=== PATIENT | female | born 1970 | race Caucasian/White ===

== ENCOUNTER 2019-08-24 14:43 | Outpatient (CLI) | payer OTHER, SELFPAY ==
--- NOTE | 2019-08-24 14:51 | MM_ITS ---
WS: [id number] BILATERAL SCREENING MAMMOGRAM WITH DONIS DISPLACEMENT VIEWS. CAD PERFORMED. HISTORY: SCREENING COMPARISON: 05/13/2018 and 04/16/2017 Bilateral craniocaudal and mediolateral like views are performed. Donis displacement views in CC and MLO projection also performed. Breasts composition: There are scattered areas of fibroglandular density. Prepectoral implants are intact. No suspicious mass or calcification. MM/[id number] IMPRESSION: BI-RADS: 2-Benign FOLLOW-UP: 1 Year Follow-up
== END 2019-08-24 14:44 | disposition home or self-care (01) ==
LOC: RADSHAW 14:48
PROVIDERS: PCP Internal Medicine; Visit Provider Internal Medicine
DX: Z12.31 Encounter for screening mammogram for malignant neoplasm of breast (principal)
CPT/HCPCS: 77067

== ENCOUNTER → 2020-02-25 13:31 | Outpatient (BNVA) | payer OTHER, SELFPAY | PROVIDERS: Visit Provider Family Medicine | DX: Z20.828 Contact with and (suspected) exposure to other viral communicable diseases (principal) | CPT/HCPCS: 87635 ==

== ENCOUNTER 2020-05-22 07:52 | Day surgery (SDC) | payer OTHER, SELFPAY ==
[2020-05-17 13:59] VITALS: BMI 33.3
[2020-05-22 07:59] VITALS: BP 132/92; PULSE 105; RESP 18; TEMP 36.7; O2SAT 98
[2020-05-22] MEDS: sodium chloride 0.9% 1,000 ML 30 ML IV (08:32)
--- NOTE | 2020-05-22 08:58 | ANES.PREANE2 ---
Pre-Anesthetic Assessment Pre-Anesthetic Assessment: Height/Weight: Height 1.65 m Weight 90.718 kg Temp Pulse Resp BP Pulse Ox 98.1 F 105 H 18 132/92 98 05/22/20 07:59 05/22/20 07:59 05/22/20 07:59 05/22/20 07:59 05/22/20 07:59 Preop Diagnosis: sc Proposed Procedure: Operation Date: 05/22/20 09:00 Proposed Procedures p Colonoscopy 81250 G56.03(Not Applicable) - Rohan Brown MD Was Beta Gill taken within 24 hours: N/A Last intake: Intake Last Liquid Date 05/21/20 Last Liquid Time 20:00 Last Solid Date 05/20/20 Last Solid Time 20:00 Social: Social History: No alcohol and No tobacco Exam: Pre-Anes Outpt Exam: alert, oriented x 3, clear to auscultation bilaterally and regular rate & rhythm Airway: Submandibular: WNL Cervical ROM: WNL MP: 2 Dentition: Full History/ROS: No significant history except as noted and No significant complaints Pulmonary: Pulmonary: None reported CV/HEM: CV/HEM: None reported : : None reported Hepatic: Hepatic: None reported GI: GI: None reported Metabolic: Metabolic: None reported Musc/skel: Musc/skel: None reported Neuropsych: Neuropsych: None reported Anesthetic Plan: ASA status: 2 Anesthesia: MAC Risk of > 500 ml blood loss (7ml/kg in children): No Meds/Allergies Current Medications: Current Medications Generic Name Dose Route Start Last Admin Trade Name Freq PRN Reason Stop Dose Admin Sodium Chloride 1,000 mls @ 30 ml s/hr 05/22/20 08:00 05/22/20 08:32 Sodium Chloride 0.9% IV 05/23/20 07:59 30 mls/hr .Q24H SUMEET Administration PFSH Anesthesia PFSH: Medical History Metabolic syndrome Family History Other Cancer Heart disease Social History Smoking and tobacco status: never smoked Alcohol intake: never History of recent travel: No Data Anesthesia Cardiac Studies: No Data to Display
--- NOTE | 2020-05-22 09:02 | W.PM.OPSFHP ---
Same Day Surgery H&P Indication for Procedure/HPI DATE OF PROCEDURE: May 22, 2020 CHIEF COMPLAINT/INDICATIONFOR SURGICAL PROCEDURE: Routine screening average risk PREOP DIAGNOSIS: sc PLANNED PROCEDRUE: Operation Date: 05/22/20 09:00 Proposed Procedures p Colonoscopy 65120 G56.03(Not Applicable) - Rohan Brown MD Medications/Allergies* Home Medications Medication Instructions Recorded Confirmed Type hydrocortisone 2.5 % topical cream [address] QDAY PRN 04/22/19 05/17/20 History with perineal applicator tramadol 50 mg tablet 50 mg PO DAILY PRN tab 08/04/19 05/17/20 History tizanidine 4 mg capsule 4 mg PO BID PRN 09/12/19 05/17/20 History multivitamin with minerals 1 tab PO DAILY 03/04/20 05/17/20 History ascorbate calcium (vitamin C) 500 500 mg PO DAILY 04/12/20 05/17/20 History mg tablet cholecalciferol (vitamin D3) 25 25 mcg PO DAILY 04/12/20 05/17/20 History mcg (1,000 unit) capsule vitamin B complex 1 cap PO DAILY 04/12/20 05/17/20 History Aspir-81 81 mg PO DAILY 05/22/20 05/22/20 History Allergies/Adverse Reactions Allergy/AdvReac Type Severity Reaction Status Date / Time hydrocodone [From [place]] Allergy ADR-Itching Verified 04/12/20 14:56 meperidine [From Demerol] Allergy ALGY-Rash Verified 04/12/20 14:56 oxycodone AdvReac ADR-Itching Verified 04/12/20 14:56 Current Medications: Generic Name Dose Route Start Last Admin Trade Name Freq PRN Reason Stop Dose Admin Sodium Chloride 1,000 mls @ 30 mls/hr 05/22/20 08:00 05/22/20 08:32 Sodium Chloride 0.9% IV 05/23/20 07:59 30 mls/hr .Q24H SUMEET Administration Pertinent History/Comorbid Conditions* Medical History (Updated 08/04/19 @ 14:26 by Rohan Brown MD) Metabolic syndrome Family History (Updated 04/22/19 @ 09:15 by Kim Hernandez LPN) Heart disease Cancer Social History Smoking and tobacco status: never smoked Alcohol intake: never History of recent travel: No Pertinent Exam Findings alert, oriented x 3, clear to auscultation bilaterally, regular rate & rhythm, operative site marked and procedure specific exam findings Recommendations Surgery/Procedure today Coding Level of Care Code Acute 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
[2020-05-22 09:32] VITALS: BP 121/64; PULSE 77; RESP 16; TEMP 36.4; O2SAT 97
[2020-05-22 09:51] VITALS: BP 109/81; PULSE 78; RESP 16; O2SAT 100
--- NOTE | 2020-05-22 18:07 | ANE.PACU2 ---
Inpatient post-anesthesia follow up: Airway intact: Yes Vital signs: Temperature 97.6 F Pulse Rate 78 Respiratory Rate 16 Blood Pressure 109/81 Pulse Oximetry 100 Oxygen Delivery Me thod Room Air Oxygen Flow Rate Fraction of Inspir ed Oxygen Hydration adequate: Yes Nausea and vomiting: No Pain level: 1 Mental status: Baseline
== END 2020-05-22 10:07 | disposition home or self-care (01) ==
PROVIDERS: Visit Provider Internal Medicine
PROC: 0DJD8ZZ Inspection of Lower Intestinal Tract, Via Natural or Artificial Opening Endoscopic (ICD-10-PCS; CPT 45378; principal; 2020-05-22 09:00)
DX: Z12.11 Encounter for screening for malignant neoplasm of colon (principal); Z79.82 Long term (current) use of aspirin; E88.81 Metabolic syndrome and other insulin resistance
CPT/HCPCS: 45378; J2704; J7030

== ENCOUNTER 2020-11-06 14:32 | Outpatient (CLI) | payer OTHER, SELFPAY ==
--- NOTE | 2020-11-06 14:41 | MM_ITS ---
WS: [id number] BILATERAL SCREENING MAMMOGRAM WITH DONIS DISPLACEMENT VIEWS. CAD PERFORMED. HISTORY: SCREENING COMPARISON: 08/24/2019, 05/13/2018 Bilateral craniocaudal and mediolateral like views are performed. Donis displacement views in CC and MLO projection also performed. Breasts composition: The breasts are almost entirely fatty. Prepectoral implants are intact. Partial capsular contraction and encapsulation by calcification. No suspicious masses or nodules. No distort ion. MM/[place] [id number] IMPRESSION: BI-RADS: 2-Benign FOLLOW-UP: 1 Year Follow-up
== END 2020-11-06 14:33 | disposition home or self-care (01) ==
LOC: RADSHAW 14:37
PROVIDERS: PCP Internal Medicine; Visit Provider Internal Medicine
DX: Z12.31 Encounter for screening mammogram for malignant neoplasm of breast (principal)
CPT/HCPCS: 77067

== ENCOUNTER 2020-11-16 14:48 | Outpatient (CLI) | payer OTHER, SELFPAY ==
--- NOTE | 2020-11-16 14:52 | XR_ITS ---
WS: [id number] Pelvis, 3 view. HISTORY: Fall and pain and pelvis. COMPARISON: None. No pelvic fractures are identified. Normal alignment of the symphysis pubis and the SI joints. Mild n arrowing of the hip joints bilaterally. XR/XR pelvis min 3V [id number] IMPRESSION: Negative pelvis radiographic series. No fractures identified.
== END 2020-11-16 14:49 | disposition home or self-care (01) ==
PROVIDERS: PCP Internal Medicine; Visit Provider Nurse Practitioner Family
DX: S39.93XA Unspecified injury of pelvis, initial encounter (principal); W19.XXXA Unspecified fall, initial encounter
CPT/HCPCS: 72190

== ENCOUNTER 2021-01-04 14:57 | Outpatient (CLI) | payer OTHER, SELFPAY ==
--- NOTE | 2021-01-04 15:03 | XR_ITS ---
WS: [id number] XR lumbar spine min 4V [id number] REASON FOR EXAM: Back pain FINDINGS: Mild rotatory scoliosis lumbar spine convex right. No significant lumbar vertebral body abnormality. Mild narrowing of the L4-L5 and L5-S1 disc space. The oblique views demonstrate no spondylolysis. No significant spondylolisthesis is present. XR/XR lumbar spine min 4V [id number] IMPRESSION: Mild changes of degenerative spondylosis in the lumbar spine as above.
== END 2021-01-04 14:58 | disposition home or self-care (01) ==
LOC: RAD 15:02
PROVIDERS: PCP Internal Medicine; Visit Provider Nurse Practitioner Family
DX: M47.816 Spondylosis without myelopathy or radiculopathy, lumbar region (principal); M54.50 Low back pain, unspecified
CPT/HCPCS: 72110

== ENCOUNTER 2021-01-10 14:26 | Outpatient (RCR) | payer OTHER, SELFPAY | END 2021-01-21 23:59 | disposition home or self-care (01) | LOC: SPT 14:26 | PROVIDERS: PCP Internal Medicine; Visit Provider Nurse Practitioner Family | DX: M54.50 Low back pain, unspecified (principal) | CPT/HCPCS: 97161 ==

== ENCOUNTER 2021-01-22 06:00 | Outpatient (RCR) | payer OTHER, SELFPAY | END 2021-02-20 23:59 | disposition home or self-care (01) | LOC: SPT 06:00 | PROVIDERS: PCP Internal Medicine; Visit Provider Nurse Practitioner Family | DX: M54.50 Low back pain, unspecified (principal) | CPT/HCPCS: 97110 ==

== ENCOUNTER → 2021-02-08 15:34 | Outpatient (BNVA) | payer OTHER, SELFPAY | PROVIDERS: PCP Internal Medicine; Visit Provider Surgery | DX: Z20.822 Contact with and (suspected) exposure to COVID-19 (principal); K64.3 Fourth degree hemorrhoids | CPT/HCPCS: 87635 ==

== ENCOUNTER 2021-02-14 06:08 | Day surgery (SDC) | payer OTHER, SELFPAY ==
[2021-02-09 13:17] VITALS: BMI 32.3
--- NOTE | 2021-02-13 07:29 | ANES.PREANE2 ---
Pre-Anesthetic Assessment Pre-Anesthetic Assessment: Height/Weight: Height 1.65 m Weight 87.997 kg Preop Diagnosis: Hemmorroids Proposed Procedure: Operation Date: 02/14/21 07:10 Proposed Procedures p Hemorroidectomy 33639 K64.3(Not Applicable) - Bean Cantor MD Familial anesthetic complications: None Social: Social History: No alcohol and No tobacco Exam: Pre-Anes Outpt Exam: alert, oriented x 3, clear to auscultation bilaterally and regular rate & rhythm Airway: Cervical ROM: WNL MP: 1 Dentition: Full Metabolic: Metabolic: Hyperlipidemia Musc/skel: Musc/skel: Scoliosis (mild) Neuropsych: Neuropsych: Anxiety Anesthetic Plan: ASA status: 2 Anesthesia: General Risk of > 500 ml blood loss (7ml/kg in children): No PFSH Anesthesia PFSH: Medical History Hyperlipemia Metabolic syndrome Surgical History H/O: hysterectomy History of adenoidectomy History of breast augmentation 2012 History of cholecystectomy History of tonsillectomy Status post colonoscopy Family History Other Cancer Heart disease Social History Smoking and tobacco status: never smoked Alcohol intake: never History of recent travel: No Data Anesthesia Cardiac Studies: No Data to Display
[2021-02-14] VITALS (8 sets, daily range): BP systolic 110–139; BP diastolic 73–87; PULSE 86–114; RESP 17–28; TEMP 36.1–36.6; O2SAT 94–100
[2021-02-14] MEDS: sodium chloride 0.9% 1,000 ML 30 ML IV (06:45)
--- NOTE | 2021-02-14 06:46 | P.ANESUD_ITS ---
Pre-Anesthetic Update Pre-Anesthetic Assessment: Date of Surgery/Procedure: 02/14/21 Preop Lisa gnosis: hemorrhoids Proposed Procedure: Operation Date: 02/14/21 07:30 Proposed Procedures p Hemorroidectomy 14287 K64.3(Not Applicable) - Bean Cantor MD Any changes to Pre-Anesthetic Assessment?: No Last Intake: Intake Last Liquid Date 02/13/21 Last Liquid Time 22:30 Last Solid Date 02/13/21 Last Solid Time 20:00 Exam: Pre-Anes Outpt Exam: alert, oriented x 3, clear to auscultation bilaterally and regular rate & rhythm Cardiac Studies: No Data to Display
--- NOTE | 2021-02-14 07:36 | W.PM.OPSFHP ---
Same Day Surgery H&P Indication for Procedure/HPI DATE OF PROCEDURE: February 14, 2021 CHIEF COMPLAINT/INDICATIONFOR SURGICAL PROCEDURE: hemorrhoidectomy PREOP DIAGNOSIS: hemorrhoids PLANNED PROCEDRUE: Operation Date: 02/14/21 07:30 Proposed Procedures p Hemorroidectomy 43076 K64.3(Not Applicable) - Bean Cantor MD Medications/Allergies* Home Medications Medication Instructions Recorded Confirmed Type multivitamin with minerals 1 tab PO DAILY 03/04/20 02/13/21 History ascorbate calcium (vitamin C) 500 500 mg PO DAILY 04/12/20 02/13/21 History mg tablet cholecalciferol (vitamin D3) 25 25 mcg PO DAILY 04/12/20 02/13/21 History mcg (1,000 unit) capsule vitamin B complex 1 cap PO DAILY 04/12/20 02/13/21 History Aspir-81 81 mg PO DAILY 05/22/20 02/13/21 History magnesium 45 mg PO DAILY 02/09/21 02/13/21 History Allergies/Adverse Reactions Allergy/AdvReac Type Severity Reaction Status Date / Time meperidine [From Demerol] Allergy ALGY-Rash Verified 02/09/21 13:23 Current Medications: Generic Name Dose Route Start Last Admin Trade Name Freq PRN Reason Stop Dose Admin Sodium Chloride 1,000 mls @ 30 mls/hr 02/14/21 06:45 02/14/21 06:45 Sodium Chloride 0.9% IV 02/15/21 06:44 30 mls/hr .Q24H SUMEET Administration Pertinent History/Comorbid Conditions* Medical History (Updated 02/08/21 @ 14:28 by Bean Cantor MD) Hyperlipemia Metabolic syndrome Surgical History (Updated 02/08/21 @ 14:28 by Bean Cantor MD) H/O: hysterectomy History of adenoidectomy History of breast augmentation 2011 History of cholecystectomy History of tonsillectomy Status post colonoscopy Family History (Updated 04/22/19 @ 09:15 by Kim Hernandez LPN) Heart disease Cancer Social History Smoking and tobacco status: never smoked Alcohol intake: never History of recent travel: No Pertinent Exam Findings alert, oriented x 3 and regular rate & rhythm Recommendations Surgery/Procedure today Coding Level of Care 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
--- NOTE | 2021-02-14 09:24 | PM.OP ---
Operative Report Date of procedure: February 14, 2021 Pre-op Diagnosis: Grade 4 hemorrhoids Post-op diagnosis: same Post-op Diagnosis: 1. Grade 4 hemorrhoids x2 2. Grade 2 hemorrhoids Procedure Done: 1. Banding of hemorrhoids 2. Hemorrhoidectomy x2 Specimens removed/disposition: Hemorrhoid tissue Surgeon: Bean Cantor Anesthesia: General Condition: stable Disposition: PACU Procedure: The patient was taken to the operating room and intubated under general anesthesia after IV antibiotic had been administered and placed in a prone jackknife position. The buttocks were taped apart. The perineum was prepped and draped in a sterile manner. A perianal block was performed using 10 cc of Exparel mixed with 10 cc of 0.5% Marcaine mixed with 10 cc of saline. Anoscope was introduced to examine the rectum and anal canal and 2 grade 4 hemorrhoid pedicles were identified. The pedicle on the right side was grasped with Allis clamps and a skin incision was made from the perianal skin to the anal verge and the plane identified superficial to the internal sphincter muscle and the external and internal hemorrhoids were excised with an energy device. The pedicle on the left side was grasped with Allis clamps and a skin incision was made from the perianal skin to the anal verge and the plane identified superficial to the internal sphincter muscle and the external and internal hemorrhoids were excised with an energy device. A smaller grade 2 hemorrhoid was grasped with Allis clamp and a rubber band was placed about the dentate line using a band applicator. Hemostasis ensured and a Adaptic gauze soaked in Vaseline and placed within the anal canal. Adaptic dressings were applied and the patient was extubated and transferred to recovery room in stable condition.
[2021-02-14] MEDS: fentaNYL 50 mcg/mL INJ 2mL IVP ×2 (09:40→09:45)
--- NOTE | 2021-02-14 11:45 | ANE.PACU2 ---
Inpatient post-anesthesia follow up: Airway intact: Yes Vital signs: Temperature 97 F Pulse Rate 94 Respiratory Rate 18 Blood Pressure 121/73 Pulse Oximetry 94 Oxygen Delivery Me thod Room Air Oxygen Flow Rate 8 Fraction of Inspir ed Oxygen Hydration adequate: Yes Nausea and vomiting: No Pain level: 3 Mental status: Baseline
== END 2021-02-14 10:54 | disposition home or self-care (01) ==
PROVIDERS: PCP Internal Medicine; Visit Provider Surgery
PROC: (CPT 46260; principal; 2021-02-14 07:30)
DX: K64.3 Fourth degree hemorrhoids (principal); K64.1 Second degree hemorrhoids; Z79.82 Long term (current) use of aspirin; E78.5 Hyperlipidemia, unspecified; F41.9 Anxiety disorder, unspecified; Z82.49 Family history of ischemic heart disease and other diseases of the circulatory system
CPT/HCPCS: 46260; 88304; C9290; J0690; J1100; J2250; J2405; J2704; J2710; J3010; J3490; J7030

== ENCOUNTER 2021-08-28 08:32 | Outpatient (CLI) | payer OTHER, SELFPAY ==
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
== END 2021-08-28 08:33 | disposition home or self-care (01) ==
LOC: RAD 08:35
PROVIDERS: PCP Internal Medicine; Visit Provider Internal Medicine Critical Care Medicine
DX: S29.8XXA Other specified injuries of thorax, initial encounter (principal); V49.60XA Unspecified car occupant injured in collision with unspecified motor vehicles in traffic accident, initial encounter
CPT/HCPCS: 71046

== ENCOUNTER 2021-12-06 14:48 | Outpatient (CLI) | payer OTHER, SELFPAY ==
--- NOTE | 2021-12-06 14:55 | MM_ITS ---
WS: [id number] BILATERAL 3D TOMOSYNTHESIS DIGITAL SCREENING MAMMOGRAPHY WITH CAD CLINICAL INFORMATION: SCREENING HISTORY: Screening mammogram. No current complaints. COMPARISON: November 06, 2020 TECHNIQUE: Bilateral CC and MLO views. FINDINGS: Stable silicone breast implants with capsular calcifications. Scattered fibroglandular densities bilaterally. No suspicious focal mass, asymmetry, calcifications, or architectural distortion. No evidence of malignancy. MM/[place] [id number] IMPRESSION: BI-RADS: 2-Benign FOLLOW UP: 1 Year Follow-up Recommend return to annual screening mammography.
== END 2021-12-06 14:49 | disposition home or self-care (01) ==
LOC: RAD 14:49
PROVIDERS: PCP Internal Medicine; Visit Provider Internal Medicine
DX: Z12.31 Encounter for screening mammogram for malignant neoplasm of breast (principal)
CPT/HCPCS: 77063; 77067

== ENCOUNTER 2022-03-05 10:23 | Outpatient (CLI) | payer SELFPAY ==
[2022-03-05 11:28] LABS: HF Add Manual Diff No
[2022-03-05 11:37] LABS: Basophils # 0.1 10^3/uL (0.0-0.1); Basophils % 0.7 %; Eosinophils # 0.1 10^3/uL (0.0-0.8); Eosinophils % 0.7 %; Hematocrit 42.4 % (37.0-47.0); Lymphocytes # 1.4 10^3/uL (0.8-4.8); Lymphocytes % 20.9 %; Mean Corpuscular Hemoglobin 31.3 pg (28.0-34.0); Mean Corpuscular Volume 94.6 fl (81-99); Mean Platelet Volume 10.1 fL (7.4-10.4); Monocytes # 0.5 10^3/uL (0.2-0.9); Monocytes % 7.9 %; Neutrophils % 69.7 %; Nucleated Red Blood Cells % 0 %; Platelet Count 277 10^3/cmm (130-400); Red Blood Count 4.48 10^6/uL (4.1-5.3); Red Cell Distribution Width 12.8 % (12.1-15.1); White Blood Count 6.8 10^3/uL (4.0-10.0)
[2022-03-05 11:55] LABS: Estmated Average Glucose 123; Hemoglobin A1C 5.9 % (4.0-6.0)
[2022-03-05 12:23] LABS: 25 Hydroxy Vitamin D 65 ng/mL (30-100); Alanine Aminotransferase 37 U/L (0-33); Albumin Level 4.4 g/dL (3.5-5.2); Alkaline Phosphatase 99 U/L (35-105); Aspartate Amino Transferase 34 U/L (0-32); Blood Urea Nitrogen 17 mg/dL (6-20); Calcium 9.8 mg/dL (8.5-10.5); Carbon Dioxide 28 mmol/L (22-29); Chloride 101 mmol/L (98-107); Chol HDL Ratio 2.41 mg/dL (0.0-4.40); Cholesterol 217 mg/dL (0-200); Globulin 2.9 g/dL (1.3-4.6); Glomerular Filtration Rate 75.6 mL/min (90-130); Glucose 89 mg/dL (65-115); HDL Cholesterol 90 mg/dL (60-100); LDL Cholesterol Calculated 109 mg/dL (50-129); LDL HDL Ratio 1.21 RATIO (0.00-3.22); Osmolality Calculated 291 mOsm/kg (285-295); Sodium 140 mmol/L (136-145); Thyroid Stimulating Hormone 1.73 uIU/mL (0.27-4.20); Total Bilirubin 0.3 mg/dL (0.15-1.2); Total Protein 7.3 g/dL (6.6-8.7); Triglycerides 92 mg/dL (0-150)
== END 2022-03-05 10:24 | disposition home or self-care (01) ==
PROVIDERS: PCP Family Medicine; Visit Provider Dermatology
DX: Z01.89 Encounter for other specified special examinations (principal)

== ENCOUNTER 2022-05-03 14:46 | Outpatient (CLI) | payer SELFPAY ==
[2022-05-03 15:24] LABS: Chol HDL Ratio 2.64 mg/dL (0.0-4.40); Cholesterol 214 mg/dL (0-200); Estmated Average Glucose 103; Glucose 78 mg/dL (65-115); HDL Cholesterol 81 mg/dL (60-100); Hemoglobin A1C 5.2 % (4.0-6.0); LDL Cholesterol Calculated 104 mg/dL (50-129); LDL HDL Ratio 1.28 RATIO (0.00-3.22); Triglycerides 143 mg/dL (0-150)
== END 2022-05-03 14:47 | disposition home or self-care (01) ==
LOC: LAB 14:47
PROVIDERS: PCP Family Medicine; Visit Provider Dermatology
DX: Z01.89 Encounter for other specified special examinations (principal)
CPT/HCPCS: 80061; 82947; 83036

== ENCOUNTER 2022-09-03 07:03 | Outpatient (CLI) | payer SELFPAY ==
[2022-09-03 07:24] LABS: HF Add Manual Diff No
[2022-09-03 07:33] LABS: Basophils # 0.1 10^3/uL (0.0-0.1); Eosinophils # 0.1 10^3/uL (0.0-0.8); Eosinophils % 1.6 %; Hematocrit 42.6 % (37.0-47.0); Hemoglobin 13.9 g/dL (11.5-15.3); Lymphocytes # 1.9 10^3/uL (0.8-4.8); Lymphocytes % 31.1 %; Mean Corpuscular HGB Conc 32.6 g/dL (30.0-36.0); Mean Corpuscular Hemoglobin 30.9 pg (28.0-34.0); Mean Corpuscular Volume 94.7 fl (81-99); Mean Platelet Volume 9.9 fL (7.4-10.4); Monocytes # 0.5 10^3/uL (0.2-0.9); Monocytes % 8.6 %; Neutrophils % 57.7 %; Nucleated Red Blood Cells % 0 %; Platelet Count 272 10^3/cmm (130-400); Red Cell Distribution Width 12.3 % (12.1-15.1); White Blood Count 6.1 10^3/uL (4.0-10.0)
[2022-09-03 07:50] LABS: Alanine Aminotransferase 24 U/L (0-33); Albumin Level 4.4 g/dL (3.5-5.2); Alkaline Phosphatase 81 U/L (35-105); Anion Gap 13.1 (5-19); Aspartate Amino Transferase 23 U/L (0-32); Blood Urea Nitrogen 14 mg/dL (6-20); Calcium 9.4 mg/dL (8.5-10.5); Carbon Dioxide 30 mmol/L (22-29); Chloride 103 mmol/L (98-107); Chol HDL Ratio 2.32 mg/dL (0.0-4.40); Cholesterol 204 mg/dL (0-200); Globulin 2.5 g/dL (1.3-4.6); Glomerular Filtration Rate 87.9 mL/min (90-130); Glucose 82 mg/dL (65-115); HDL Cholesterol 88 mg/dL (60-100); LDL Cholesterol Calculated 93 mg/dL (50-129); LDL HDL Ratio 1.06 RATIO (0.00-3.22); Osmolality Calculated 294 mOsm/kg (285-295); Potassium 4.1 mmol/L (3.5-5.1); Sodium 142 mmol/L (136-145); Total Bilirubin 0.2 mg/dL (0.15-1.2); Total Protein 6.9 g/dL (6.6-8.7); Triglycerides 114 mg/dL (0-150)
[2022-09-03 07:57] LABS: Estmated Average Glucose 111; Hemoglobin A1C 5.5 % (4.0-6.0)
== END 2022-09-03 07:04 | disposition home or self-care (01) ==
PROVIDERS: PCP Family Medicine; Visit Provider Dermatology
DX: Z01.89 Encounter for other specified special examinations (principal)

== ENCOUNTER → 2022-11-07 15:46 | Outpatient (BNVA) | payer OTHER, SELFPAY | PROVIDERS: PCP Family Medicine; Referring Provider Family Medicine; Visit Provider Student in an Organized Health Care Education/Training Program | DX: G56.03 Carpal tunnel syndrome, bilateral upper limbs (principal) | CPT/HCPCS: 73110 ==

== ENCOUNTER 2022-12-19 10:23 | Day surgery (SDC) | payer OTHER, SELFPAY ==
[2022-12-19] VITALS (7 sets, daily range): BP systolic 110–137; BP diastolic 72–94; PULSE 82–105; RESP 14–16; TEMP 36.1–36.6; O2SAT 98–100; BMI 33.7
[2022-12-19] MEDS: sodium chloride 0.9% 1,000 ML 30 ML IV (11:03)
--- NOTE | 2022-12-19 11:16 | P.ANESASSM_ITS ---
Pre-Anesthetic Assessment Height/Weight: Height 1.65 m Weight 92.079 kg Temp Pulse Resp BP Pulse Ox O2 Del Method 98 F 105 H 16 125/85 98 Room Air 12/19/22 10:12/19/22 10:12/19/22 10:12/19/22 10:12/19/22 10:12/19/22 10:32 Operation Date: 12/19/22 12:00 Proposed Procedures p Bilateral carpal tunnel release 40496,G56.03(Bilateral) - Avinash Yu, DO Was Beta Gill taken within 24 hours: N/A Was Clonidine taken within 24 hours: N/A Last intake: Intake Last Liquid Date 12/19/22 Last Liquid Time 08:00 Last Solid Date 12/18/22 Last Solid Time 19:00 Social No tobacco Exam alert, oriented x 3, clear to auscultation bilaterally and regular rate & rhythm Airway Submandibular: within normal limits Cervical ROM: within normal limits Mallampati: Class II History/ROS No significant history except as noted and No significant complaints Metabolic Hyperlipidemia Neuropsych Anxiety Anesthetic Plan ASA status: 2 Anesthesia: MAC Risk of > 500 ml blood loss (7ml/kg in children): No Medications/Allergies Home Medications Medication Instructions Recorded Confirmed Last Taken Type magnesium 500 mg tablet 1,500 mg PO DAILY 02/09/21 12/18/22 12/18/22 History ondansetron HCl 4 mg tablet 4 mg PO Q6H PRN nausea and 02/14/21 12/16/22 Unknown Rx (Zofran) vomiting #20 tabs alprazolam 0.5 mg tablet 0.25 mg PO BID PRN anxiety #30 tabs 06/10/22 12/16/22 Unknown Rx atorvastatin 40 mg tablet 40 mg PO DAILY #90 tabs 06/10/22 12/18/22 12/18/22 Rx ADK5 supplement 1 tab PO DAILY 10/31/22 12/18/22 12/18/22 History diindolylmethane 150 mg-broccoli 1 cap PO DAILY 10/31/22 12/18/22 12/18/22 History seed extract 30 mg capsule estradiol 6 mg implant pellet 6 mg SUBCUT .Q3-4MO 10/31/22 12/16/22 10/16/22 History methylfactors supplement 1 tab PO DAILY 08/01/1312/18/22 12/18/22 History thyroid (pork) 60 mg tablet (LABORATORY CHEMICAL ASSISTANT 60 mg PO DAILY 10/31/22 12/18/22 12/19/22 History Thyroid) cetirizine 10 mg tablet (Zyrtec) 10 mg PO DAILY PRN Allergy Symptoms 12/12/22 12/18/22 12/18/22 History liraglutide 0.6 mg/0.1 mL (18 mg/3 1.2 mg (0.2 mL) SUBCUT DAILY #9 mL 12/12/22 12/16/22 12/17/22 Rx mL) subcutaneous pen injector (Funky Android 3-Kings) omega 7-fft-icp-fish oil 1,000 mg 1 cap PO DAILY 12/12/22 12/16/22 12/15/22 History (120 mg-180 mg) capsule (Fish Oil) Women's 50 Plus Multivitamin 1 tab PO DAILY 12/16/22 12/18/22 12/18/22 History hydrocortisone 2.5 % topical cream 1 applic [place] DAILY PRN Hemorrhoids 12/16/22 12/16/22 Unknown History with perineal applicator (Anusol-HC) tizanidine 4 mg tablet 4 mg PO TID PRN Spasms 12/16/22 12/16/22 12/09/22 History trazodone 50 mg tablet 50 - 100 mg PO BEDTIME PRN insomnia 12/16/22 12/18/22 12/18/22 History venlafaxine 150 mg 150 mg PO DAILY 12/16/22 12/18/22 12/18/22 History capsule,extended release 24 hr (Effexor XR) Lactobacillus acidophilus 500 1,000 mmu cells PO DAILY 12/18/22 12/18/22 12/18/22 History million cell tablet Allergies Allergy/AdvReac Type Severity Reaction Status Date / Time meperidine [From Demerol] Allergy ALGY-Rash Verified 12/16/22 15:43 Current Medications Generic Name Dose Route Start Last Admin Trade Name Freq PRN Reason Stop Dose Admin Sodium Chloride 1,000 mls @ 30 mls/hr 12/19/22 10:30 12/19/22 11:03 Sodium Chloride 0.9% IV 12/20/22 10:29 30 mls/hr .Q24H SUMEET Administration PFSH Anesthesia Medical History Hyperlipemia Metabolic syndrome Surgical History H/O: hemorrhoidectomy (02/14/21) H/O: hysterectomy Partial - Fibroids. History of adenoidectomy History of breast augmentation 2011 History of cholecystectomy History of tonsillectomy Status post colonoscopy 2019 - repeat in 10 years Family History Other Cancer Heart disease Social History Smoking and tobacco status: never smoked Alcohol intake: never Substance/Drug Use: never Data Anesthesia Cardiac Studies: No Data to Display
--- NOTE | 2022-12-19 12:01 | W.PM.OPSFHP ---
Same Day Surgery H&P Indication for Procedure/HPI DATE OF PROCEDURE: December 19, 2022 CHIEF COMPLAINT/INDICATIONFOR SURGICAL PROCEDURE: Bilateral carpal tunnel syndrome PREOP DIAGNOSIS: Left and right carpal Tunnel syndrome PLANNED PROCEDURE: Operation Date: 12/19/22 12:00 Proposed Procedures p Bilateral carpal tunnel release 88146,G56.03(Bilateral) - Avinash Yu DO Medications/Allergies* Home Medications Medication Instructions Recorded Confirmed Type magnesium 500 mg tablet 1,500 mg PO DAILY 02/09/21 12/18/22 History ADK5 supplement 1 tab PO DAILY 10/31/22 12/18/22 History diindolylmethane 150 mg-broccoli 1 cap PO DAILY 10/31/22 12/18/22 History seed extract 30 mg capsule estradiol 6 mg implant pellet 6 mg SUBCUT .Q3-4MO 10/31/22 12/16/22 History methylfactors supplement 1 tab PO DAILY 10/31/22 12/18/22 History thyroid (pork) 60 mg tablet (AGRICULTURE SCIENTIST 60 mg PO DAILY 10/31/22 12/18/22 History Thyroid) cetirizine 10 mg tablet (Zyrtec) 10 mg PO DAILY PRN Allergy Symptoms 12/12/22 12/18/22 History omega 3-eaq-cap-fish oil 1,000 mg 1 cap PO DAILY 12/12/22 12/16/22 History (120 mg-180 mg) capsule (Fish Oil) Women's 50 Plus Multivitamin 1 tab PO DAILY 12/16/22 12/18/22 History hydrocortisone 2.5 % topical cream 1 applic [place] DAILY PRN Hemorrhoids 12/16/22 12/16/22 History with perineal applicator (Anusol-HC) tizanidine 4 mg tablet 4 mg PO TID PRN Spasms 12/16/22 12/16/22 History trazodone 50 mg tablet 50 - 100 mg PO BEDTIME PRN insomnia 12/16/22 12/18/22 History venlafaxine 150 mg 150 mg PO DAILY 12/16/22 12/18/22 History capsule,extended release 24 hr (Effexor XR) Lactobacillus acidophilus 500 1,000 mmu cells PO DAILY 12/18/22 12/18/22 History million cell tablet Allergies/Adverse Reactions Allergy/AdvReac Type Severity Reaction Status Date / Time meperidine [From Demerol] Allergy ALGY-Rash Verified 12/16/22 15:43 Current Medications: Generic Name Dose Route Start Last Admin Trade Name Freq PRN Reason Stop Dose Admin Sodium Chloride 1,000 mls @ 30 mls/hr 12/19/22 10:30 12/19/22 11:03 Sodium Chloride 0.9% IV 12/20/22 10:29 30 mls/hr .Q24H SUMEET Administration Pertinent History/Comorbid Conditions* Medical History (Updated 10/03/22 @ 15:41 by Brittany Rojas DO) Hyperlipemia Metabolic syndrome Surgical History (Updated 12/25/21 @ 13:37 by Brittany Rojas DO) H/O: hemorrhoidectomy (02/14/21) H/O: hysterectomy Partial - Fibroids. History of adenoidectomy History of breast augmentation 2011 History of cholecystectomy History of tonsillectomy Status post colonoscopy 2019 - repeat in 10 years Family History (Updated 04/22/19 @ 09:15 by Kim Hernandez LPN) Heart disease Cancer Social History Smoking and tobacco status: never smoked Alcohol intake: never Substance/Drug Use: never Pertinent Exam Findings alert, operative site marked and procedure specific exam findings Bilateral wrist carpal tunnel Wrist: Positive median compression test bilaterally Positive Tinel's on left Posiive Tinel's on right. Positive Phalen's bilaterally. Thenar weakness bilaterally. No atrophy noted. No Intrinsic atrophy noted bilaterally. Negative CMC tenderness palpation. Negative Grind test. Recommendations Surgery/Procedure today Other Plans: plan to proceed With a bilateral carpal tunnel release surgery patient understands incidence procedure risk benefits complication alternatives surgery elects to proceed with surgery all questions answered Coding Level of Care Code Acute Code for Chg Fwd Diagnoses
[2022-12-19] MEDS: acetaminophen 1,000 MG/100 ML PIGGYBACK 400 MG IV (12:08)
[2022-12-19] MEDS: ketorolac 30 mg/mL INJ IVP (12:08)
[2022-12-19] MEDS: ceFAZolin 2,000 MG in sodium chloride 0.9% (plus) 50 ML 100 MG IV (12:15)
[2022-12-19] MEDS: lidocaine-epi 1% 20 mL INJ 10 ML INJECTION (12:30)
[2022-12-19] MEDS: ROPivacaine 0.5% SDV 30 mL 50 MG INJECTION (12:30)
--- NOTE | 2022-12-19 13:14 | W.PM.BPON ---
Date of Procedure: 12/19/2022 Surgeon: Avinash Yu DO Mobile Lounge Driver Or Operator(s): None Procedure(s) performed: Right and left carpal tunnel releases Findings of the procedure(s): Entrapment median nerve at the bilateral wrists procedure went as planned with bilateral carpal tunnel release Estimated blood loss: 4 mL Specimen(s) removed: None Post-operative diagnosis: Bilateral carpal tunnel syndrome
--- NOTE | 2022-12-19 13:17 | PM.OP ---
Operative Report Date of procedure: December 19, 2022 Surgeon: Avinash uY DO Procedure: Preoperative diagnosis: Bilateral carpal tunnel syndrome Postoperative diagnosis: Same Procedure done: 1.?Right carpal tunnel?release 2. Left carpal Tunnel Release Surgeon: Avinash uY DO [employer]: None Anesthesia: MAC (Local) Estimated blood loss: [?4]mL Tourniquet time [7 ]minutes right 7 minutes left IV fluids: See anesthesia?record Complications: None Findings: See operative?report narrative Condition: stable Disposition: same day Brief History: Patient is a pleasant [52]year-old [female] with?bilateral carpal tunnel syndrome.? Patient has been worked up in the outpatient setting findings and physical examination consistent with this.? patient's failed cortisone injections and other conservative treatment.? We detailed out patient's?risk benefits complication alternatives with surgical and nonsurgical treatment options. Through shared decision making, patient agrees to proceed with surgical intervention of the left carpal tunnel?release .? Patient understands and agrees with current plan.? All questions answered.? Patient elects to proceed with surgical intervention with carpal tunnel?release. Procedure: Patient seen and evaluated in the preoperative holding area.? Consent was?reviewed and signed with patient.? Correct extremity was marked.? Patient was seen evaluated by the anesthesia department once cleared for surgery was brought back to the operative suite.? Patient was kept on [facility] in supine position all bony prominences were well-padded patient properly secured to the bed.??Right and left upper extremity was then placed onto an armboards.? A nonsterile tourniquet was applied to the?right upper arm.? Patient underwent anesthesia per the anesthesia department.? Patient's?bilateral upper extremity was then prepped and draped in standard orthopedic fashion.? Final timeout performed.? Patient?received appropriate preoperative antibiotics. Under sterile aseptic technique patient?received local anesthesia over the preplanned carpal tunnel incision site. Esmarch was used to exsanguinate and to be tourniquet for the LUE since pt had AC fossa IV. A standard mini open?left carpal tunnel incision was made.? Starting distally at Payne's cardinal line in line with the fourth?ray extending proximally distal to the wrist crease centered over the carpal tunnel.? Sharp scalpel incision was made through skin and subcutaneous tissue.? Self-retaining?retractor was placed and the palmar fascia was identified.? This was then split longitudinally and direct visualization of the transverse carpal ligament was then made.? I then utilizing scalpel feathered through the transverse carpal ligament until I entered the floor of the transverse carpal tunnel ligament into the carpal tunnel.? Next I switched to dissection scissors and completed my?release of the transverse carpal ligament distally with care to protect the?recurrent motor branch.? I completely?released into the palmar fat and until no entrapment was noted distally.? Care was made to protect the superficial palmar arch during my distal dissection.?? Next I utilized a nasal speculum placed on top of the transverse carpal ligament and utilize this to?retract the subcutaneous fat and tissue and under direct loupe magnification was able to identify the transverse carpal ligament.? Next I then placed a Beulah underneath the transverse carpal tunnel ligament to protect the contents of the carpal tunnel and subsequently utilizing dissection scissors under loupe magnification completely?released the transverse carpal ligament proximally into the median antebrachial fascia.? Care was made to protect the palmar cutaneous branch by keeping my scissors curved ulnarly.? Once completely?released, I then placed my Beulah and had appropriate decompression of the carpal tunnel proximally as well as distally.? I then inspected the contents of the carpal tunnel which showed an hourglass shape of the median nerve showing its compression.? No masses were noted.? Tendons appeared healthy.? Wound was then thoroughly irrigated.? Esmark tourniquet deflated.? Hemostasis satisfactory with bipolar electrocautery.? I then closed the incision with interrupted nylon stitches.? Xeroform 4 x 4's and a bulky soft dressing was applied.? Next attention towards right carpal tunnel release. Under sterile aseptic technique patient received?local anesthesia over the preplanned carpal tunnel incision site. Esmarch was used to exsanguinate the?right upper extremity and tourniquet was insufflated to 250 mmHg. A standard mini open?right carpal tunnel incision was made.? Starting distally at Payne's cardinal line in line with the fourth?ray extending proximally distal to the wrist crease centered over the carpal tunnel.? Sharp scalpel incision was made through skin and subcutaneous tissue.? Self-retaining?retractor was placed and the palmar fascia was identified.? This was then split longitudinally and direct visualization of the transverse carpal ligament was then made.? I then utilizing scalpel feathered through the transverse carpal ligament until I entered the floor of the transverse carpal tunnel ligament into the carpal tunnel.? Next I switched to dissection scissors and completed my?release of the transverse carpal ligament distally with care to protect the?recurrent motor branch.? I completely?released into the palmar fat and until no entrapment was noted distally.? Care was made to protect the superficial palmar arch during my distal dissection.?? Next I utilized a nasal speculum placed on top of the transverse carpal ligament and utilize this to?retract the subcutaneous fat and tissue and under direct loupe magnification was able to identify the transverse carpal ligament.? Next I then placed a Beulah underneath the transverse carpal tunnel ligament to protect the contents of the carpal tunnel and subsequently utilizing dissection scissors and knife under loupe magnification completely?released the transverse carpal ligament proximally into the median antebrachial fascia.? Care was made to protect the palmar cutaneous branch by keeping my scissors curved ulnarly.? Once completely?released, I then placed my Beulah and had appropriate decompression of the carpal tunnel proximally as well as distally.? I then inspected the contents of the carpal tunnel which showed an hourglass shape of the median nerve showing its compression.? No masses were noted.? Tendons appeared healthy.? Wound was then thoroughly irrigated.? Tourniquet deflated.? Hemostasis satisfactory with bipolar electrocautery.? I then closed the incision with interrupted nylon stitches.? Xeroform 4 x 4's and a bulky soft dressing was applied.?? Patient was then awakened from anesthesia and taken to PACU in stable condition.? Patient tolerated procedure without complications. Disposition: Patient taken to PACU in stable condition?recovering well.? Dressing clean dry and intact.? Patient will?receive appropriate discharge instructions as well as pain medication postoperatively.? Patient to follow-up with me in the office in 2 weeks.? They understand they may be weightbearing as tolerated to the?bilateral hands.? Patient should keep incision clean dry and intact.? Patient understands if any questions or concerns may contact the office.
== END 2022-12-19 14:30 | disposition home or self-care (01) ==
PROVIDERS: PCP Family Medicine; Visit Provider Student in an Organized Health Care Education/Training Program
PROC: (CPT 64721; principal; 2022-12-19 12:00)
DX: G56.03 Carpal tunnel syndrome, bilateral upper limbs (principal); E78.5 Hyperlipidemia, unspecified
CPT/HCPCS: 64721; J0131; J0690; J1885; J2250; J2704; J2795; J3010; J7030

== ENCOUNTER 2022-12-25 12:51 | Outpatient (CLI) | payer OTHER, SELFPAY ==
--- NOTE | 2022-12-25 13:00 | MM_ITS ---
WS: [email or web address] BILATERAL 3D TOMOSYNTHESIS DIGITAL SCREENING MAMMOGRAPHY WITH CAD CLINICAL INFORMATION: SCREENING HISTORY: Screening mammogram. No current complaints. COMPARISON: 2021 TECHNIQUE: Bilateral CC and MLO views. FINDINGS: Stable silicone breast implants with capsular calcifications Scattered fibroglandular densities bilaterally. No suspicious focal mass, asymmetry, calcifications, or architectural distortion. No evidence of malignancy. IMPRESSION: MM/[place] [id number] BI-RADS: 2-Benign FOLLOW UP: 1 Year Follow-up Recommend return to annual screening mammography.
== END 2022-12-25 12:52 | disposition home or self-care (01) ==
PROVIDERS: PCP Family Medicine; Visit Provider Family Medicine
DX: Z12.31 Encounter for screening mammogram for malignant neoplasm of breast (principal)
CPT/HCPCS: 77063; 77067

== ENCOUNTER 2023-01-31 13:56 | Outpatient (CLI) | payer OTHER, SELFPAY ==
--- NOTE | 2023-01-31 14:00 | XR_ITS ---
WS: [email or web address] SCREENING DEXA SCAN [facility] CLINICAL INFORMATION: postmenopausal COMPARISON: None. FINDINGS: The L1-L4 bone mineral density measures 1.172 g/cm2. This corresponds to a T score score of -0.1 and Z score of -0.4. Left femoral neck bone mineral density measures 1.136 g/cm2. This corresponds to a T score of 1.0 and Z score of 0.9. Right femoral neck bone mineral density measures 1.081 g/cm2. This corresponds to a T score 0.6of and Z score of 0.4. Mean femoral neck bone mineral density measures 1.109 g/cm2. This corresponds to a T score of 0.8 and Z score of 0.7. IMPRESSION: Normal bone mineralization. Patient's FRAX calculated 10 year probability for major osteoporotic fracture is 4.0% and osteoporoti c hip fracture is 0.1%.
== END 2023-01-31 13:57 | disposition home or self-care (01) ==
LOC: RAD 13:57
PROVIDERS: PCP Family Medicine; Visit Provider Family Medicine
DX: Z78.0 Asymptomatic menopausal state (principal)
CPT/HCPCS: 77080

== ENCOUNTER → 2023-02-28 09:38 | Outpatient (BNVA) | payer OTHER, SELFPAY | PROVIDERS: PCP Family Medicine; Visit Provider Family Medicine | DX: E66.9 Obesity, unspecified (principal); M25.50 Pain in unspecified joint | CPT/HCPCS: 80053; 85025; 85651; 86038; 86140; 86200; 86431 ==

== ENCOUNTER 2023-03-11 13:51 | Outpatient (RCR) | payer OTHER, SELFPAY | END 2023-03-23 23:59 | disposition home or self-care (01) | LOC: SOT 13:51 | PROVIDERS: PCP Family Medicine; Visit Provider Student in an Organized Health Care Education/Training Program | DX: M65.312 Trigger thumb, left thumb (principal); M65.88 Other synovitis and tenosynovitis, other site | CPT/HCPCS: 97110; 97166; 97530 ==

== ENCOUNTER 2023-03-24 06:00 | Outpatient (RCR) | payer OTHER, SELFPAY | END 2023-04-23 23:59 | disposition home or self-care (01) | LOC: SOT 06:00 | PROVIDERS: PCP Family Medicine; Visit Provider Student in an Organized Health Care Education/Training Program | DX: M65.312 Trigger thumb, left thumb (principal); M65.9 Synovitis and tenosynovitis, unspecified | CPT/HCPCS: 97022; 97110; 97140 ==

== ENCOUNTER → 2023-05-16 13:30 | Outpatient (BNVA) | payer OTHER, SELFPAY | PROVIDERS: PCP Family Medicine; Visit Provider Nurse Practitioner | DX: R09.81 Nasal congestion (principal) | CPT/HCPCS: 87400; 87426 ==

== ENCOUNTER 2023-09-02 07:16 | Outpatient (CLI) | payer SELFPAY ==
[2023-09-02 07:45] LABS: HF Add Manual Diff No
[2023-09-02 07:48] LABS: Basophils % 0.6 %; Eosinophils # 0.1 10^3/uL (0.0-0.8); Eosinophils % 1.1 %; Lymphocytes # 1.9 10^3/uL (0.8-4.8); Lymphocytes % 30.6 %; Mean Corpuscular HGB Conc 34.7 g/dL (30-55); Mean Corpuscular Hemoglobin 31.8 pg (27-33); Mean Corpuscular Volume 91.6 fl (85-98); Mean Platelet Volume 9.8 fL (7.4-10.4); Monocytes # 0.6 10^3/uL (0.2-0.9); Monocytes % 9.5 %; Nucleated Red Blood Cells % 0 %; Platelet Count 287 10^3/cmm (157-399); Red Blood Count 4.91 10^6/uL (3.85-5.65); Red Cell Distribution Width 11.8 % (12.1-15.1); White Blood Count 6.21 10^3/uL (3.29-11.43)
[2023-09-02 08:25] LABS: Estmated Average Glucose 111; Hemoglobin A1C 5.5 % (4.0-6.0)
[2023-09-02 08:28] LABS: Alanine Aminotransferase 38 U/L (0-33); Albumin Level 4.7 g/dL (3.5-5.2); Alkaline Phosphatase 96 U/L (35-105); Anion Gap 18.3 (5-19); Aspartate Amino Transferase 33 U/L (0-32); Blood Urea Nitrogen 18 mg/dL (6-20); Calcium 9.4 mg/dL (8.5-10.5); Carbon Dioxide 26 mmol/L (22-29); Chloride 100 mmol/L (98-107); Cholesterol 260 mg/dL (0-200); Globulin 2.8 g/dL (1.3-4.6); Glucose 99 mg/dL (65-115); HDL Cholesterol 50 mg/dL (60-100); LDL Cholesterol Calculated 169 mg/dL (50-129); LDL HDL Ratio 3.38 RATIO (0.00-3.22); Osmolality Calculated 292 mOsm/kg (285-295); Potassium 4.3 mmol/L (3.5-5.1); Sodium 140 mmol/L (136-145); Thyroid Stimulating Hormone 1.85 uIU/mL (0.27-4.20); Total Bilirubin 0.4 mg/dL (0.15-1.2); Total Protein 7.5 g/dL (6.6-8.7); Triglycerides 204 mg/dL (0-150)
== END 2023-09-02 07:17 | disposition home or self-care (01) ==
PROVIDERS: PCP Family Medicine; Visit Provider Dermatology
DX: Z01.89 Encounter for other specified special examinations (principal)

== ENCOUNTER → 2023-10-07 15:43 | Outpatient (BNVA) | payer OTHER, SELFPAY | PROVIDERS: PCP Family Medicine; Visit Provider Student in an Organized Health Care Education/Training Program | DX: M19.031 Primary osteoarthritis, right wrist (principal); M65.9 Synovitis and tenosynovitis, unspecified; M79.641 Pain in right hand; M79.642 Pain in left hand; M19.032 Primary osteoarthritis, left wrist | CPT/HCPCS: 73130 ==

== ENCOUNTER 2024-01-09 07:49 | Outpatient (CLI) | payer OTHER, SELFPAY ==
--- NOTE | 2024-01-09 07:57 | MM_ITS ---
WS: [email or web address] BILATERAL SCREENING DIGITAL BREAST MAMMOGRAPHY WITH DONIS DISPLACEMENT VIEWS. CAD PERFORMED. HISTORY: SCREENING COMPARISON: 12/25/2022, 12/06/2021 Bilateral craniocaudal and mediolateral oblique views are performed with tomosynthesis and SM. Donis displacement views in CC and MLO projection also performed. Breasts composition: The breasts are almost entirely fatty. Retroglandular breast implants are intact. Partially encapsulated by calcification. No suspicious mas ses or distortion. MM/MM scr BI tomosynthesis [id number] IMPRESSION: BI-RADS: 2 - Benign. FOLLOW-UP: 1 Year Follow-up
== END 2024-01-09 07:50 | disposition home or self-care (01) ==
LOC: RAD 07:49
PROVIDERS: PCP Family Medicine; Visit Provider Family Medicine
DX: Z12.31 Encounter for screening mammogram for malignant neoplasm of breast (principal); R92.313 Mammographic fatty tissue density, bilateral breasts; Z98.82 Breast implant status
CPT/HCPCS: 77063; 77067

== ENCOUNTER 2024-06-01 05:57 | Outpatient (CLI) | payer SELFPAY ==
[2024-06-01 07:27] LABS: HF Add Manual Diff No
[2024-06-01 07:49] LABS: Basophils % 0.6 %; Eosinophils # 0.1 10^3/uL (0.0-0.8); Eosinophils % 2.1 %; Lymphocytes % 31.4 %; Mean Corpuscular HGB Conc 33.7 g/dL (30-55); Mean Corpuscular Hemoglobin 31.5 pg (27-33); Mean Corpuscular Volume 93.3 fl (85-98); Mean Platelet Volume 9.9 fL (7.4-10.4); Monocytes # 0.6 10^3/uL (0.2-0.9); Monocytes % 9.5 %; Neutrophils % 56.2 %; Nucleated Red Blood Cells % 0 %; Platelet Count 370 10^3/cmm (157-399); Red Blood Count 4.61 10^6/uL (3.85-5.65); Red Cell Distribution Width 12.7 % (12.1-15.1); White Blood Count 6.22 10^3/uL (3.29-11.43)
[2024-06-01 08:12] LABS: Estmated Average Glucose 105; Hemoglobin A1C 5.3 % (4.0-6.0)
[2024-06-01 08:22] LABS: Alanine Aminotransferase 21 U/L (0-33); Albumin Level 4.3 g/dL (3.5-5.2); Alkaline Phosphatase 73 U/L (35-105); Aspartate Amino Transferase 22 U/L (0-32); Blood Urea Nitrogen 21 mg/dL (6-20); Calcium 9.5 mg/dL (8.5-10.5); Carbon Dioxide 26 mmol/L (22-29); Chloride 104 mmol/L (98-107); Cholesterol 341 mg/dL (0-200); Globulin 2.9 g/dL (1.3-4.6); Glomerular Filtration Rate 74.7 mL/min (90-130); Glucose 86 mg/dL (65-115); HDL Cholesterol 48 mg/dL (60-100); LDL Cholesterol Calculated 235 mg/dL (50-129); Osmolality Calculated 294 mOsm/kg (285-295); Sodium 141 mmol/L (136-145); Thyroid Stimulating Hormone 2.13 uIU/mL (0.27-4.20); Total Bilirubin 0.3 mg/dL (0.15-1.2); Total Protein 7.2 g/dL (6.6-8.7); Triglycerides 290 mg/dL (0-150)
[2024-06-01 08:27] LABS: Anion Gap 15.2 (5-19); Potassium 4.2 mmol/L (3.5-5.1)
== END 2024-06-01 05:58 | disposition home or self-care (01) ==
LOC: LAB 05:58
PROVIDERS: PCP Family Medicine; Visit Provider Dermatology
DX: Z01.89 Encounter for other specified special examinations (principal)

== ENCOUNTER 2024-07-05 10:32 | Outpatient (CLI) | payer OTHER, SELFPAY ==
--- NOTE | 2024-07-05 10:45 | MM_ITS ---
WS: [email or web address] ADDITIONAL VIEWS RIGHT MAMMOGRAM WITH DIGITAL BREAST TOMOSYNTHESIS. Implant displacement views. RIGHT BREAST ULTRASOUND HISTORY: breast mass at 7:00 COMPARISON: 01/09/2024, 12/25/2022, 12/06/2021 RIGHT MAMMOGRAM: Spot compression views and true ML with digital breast tomosynthesis and SM. Breast composition: There are scattered areas of fibroglandular density. Marker is placed along the lateral RIGHT breast near 9-10 o'clock but there is no underlying mass identified. No soft tissue thickening or calcification. The implant is intact and there is partial encapsulation and calcification of the wall of the implant. RIGHT BREAST ULTRASOUND 2-D and color Doppler imaging submitted. Ultrasound directed 8:00 RIGHT breast at the area of palpable concern. There is no ultrasound finding identified. There is no shadowing or mass. There are calcifications at this location within the wall of the implant. MM/[place] [id number] IMPRESSION: BI-RADS: 2 - Benign. FOLLOW UP: 1 Year Follow-up No ultrasound or mammographic mass in the RIGHT breast in the area of concern. The palpable area may be calcifications associated with the implant.
--- NOTE | 2024-07-05 11:15 | US_ITS ---
WS: [email or web address] ADDITIONAL VIEWS RIGHT MAMMOGRAM WITH DIGITAL BREAST TOMOSYNTHESIS. Implant displacement views. RIGHT BREAST ULTRASOUND HISTORY: breast mass at 7:00 COMPARISON: 01/09/2024, 12/25/2022, 12/06/2021 RIGHT MAMMOGRAM: Spot compression views and true ML with digital breast tomosynthesis and SM. Breast composition: There are scattered areas of fibroglandular density. Marker is placed along the lateral RIGHT breast near 9-10 o'clock but there is no underlying mass identified. No soft tissue thickening or calcification. The implant is intact and there is partial encapsulation and calcification of the wall of the implant. RIGHT BREAST ULTRASOUND 2-D and color Doppler imaging submitted. Ultrasound directed 8:00 RIGHT breast at the area of palpable concern. There is no ultrasound finding identified. There is no shadowing or mass. There are calcifications at this location within the wall of the implant. US/US breast RT limited* [id number] IMPRESSION: BI-RADS: 2 - Benign. FOLLOW UP: 1 Year Follow-up No ultrasound or mammographic mass in the RIGHT breast in the area of concern. The palpable area may be calcifications associated with the implant.
== END 2024-07-05 10:33 | disposition home or self-care (01) ==
PROVIDERS: PCP Family Medicine; Visit Provider Family Medicine
DX: N63.15 Unspecified lump in the right breast, overlapping quadrants (principal); R92.323 Mammographic fibroglandular density, bilateral breasts; Z98.82 Breast implant status; N64.89 Other specified disorders of breast
CPT/HCPCS: 76642; 77065

== ENCOUNTER 2024-08-06 11:45 | Outpatient (RCR) | payer OTHER, SELFPAY | END 2024-08-21 23:59 | disposition home or self-care (01) | LOC: SOT 11:45 | PROVIDERS: Visit Provider Physician Assistant | DX: M25.532 Pain in left wrist (principal) | CPT/HCPCS: 97110; 97165 ==

== ENCOUNTER 2024-09-02 06:21 | Outpatient (CLI) | payer SELFPAY ==
[2024-09-02 06:46] LABS: HF Add Manual Diff No
[2024-09-02 06:49] LABS: Basophils # 0.1 10^3/uL (0.0-0.1); Basophils % 0.9 %; Eosinophils # 0.1 10^3/uL (0.0-0.8); Eosinophils % 2.2 %; Hematocrit 42.3 % (36-47); Lymphocytes # 1.8 10^3/uL (0.8-4.8); Lymphocytes % 33.5 %; Mean Corpuscular HGB Conc 33.3 g/dL (30-55); Mean Corpuscular Hemoglobin 30.9 pg (27-33); Mean Corpuscular Volume 92.6 fl (85-98); Mean Platelet Volume 9.4 fL (7.4-10.4); Monocytes # 0.5 10^3/uL (0.2-0.9); Monocytes % 9.7 %; Neutrophils # 2.88 10^3/uL (1.8-7.7); Neutrophils % 53.5 %; Nucleated Red Blood Cells % 0 %; Platelet Count 280 10^3/cmm (157-399); Red Blood Count 4.57 10^6/uL (3.85-5.65); Red Cell Distribution Width 12.4 % (12.1-15.1); White Blood Count 5.38 10^3/uL (3.29-11.43)
[2024-09-02 07:15] LABS: Alanine Aminotransferase 30 U/L (0-33); Albumin Level 4.4 g/dL (3.5-5.2); Alkaline Phosphatase 81 U/L (35-105); Anion Gap 18.1 (5-19); Aspartate Amino Transferase 30 U/L (0-32); Blood Urea Nitrogen 18 mg/dL (6-20); Calcium 9.4 mg/dL (8.5-10.5); Carbon Dioxide 25 mmol/L (22-29); Chloride 102 mmol/L (98-107); Cholesterol 313 mg/dL (0-200); Globulin 2.7 g/dL (1.3-4.6); Glomerular Filtration Rate 65.2 mL/min (90-130); Glucose 96 mg/dL (65-115); HDL Cholesterol 58 mg/dL (60-100); LDL Cholesterol Calculated 198 mg/dL (50-129); LDL HDL Ratio 3.41 RATIO (0.00-3.22); Osmolality Calculated 294 mOsm/kg (285-295); Potassium 4.1 mmol/L (3.5-5.1); Sodium 141 mmol/L (136-145); Total Bilirubin 0.3 mg/dL (0.15-1.2); Total Protein 7.1 g/dL (6.6-8.7); Triglycerides 286 mg/dL (0-150)
[2024-09-02 07:17] LABS: Estmated Average Glucose 117; Hemoglobin A1C 5.7 % (4.0-6.0)
[2024-09-02 07:58] LABS: 25 Hydroxy Vitamin D 95 ng/mL (30-100)
== END 2024-09-02 06:22 | disposition home or self-care (01) ==
PROVIDERS: PCP Family Medicine; Visit Provider Dermatology
DX: Z01.89 Encounter for other specified special examinations (principal)

== ENCOUNTER → 2024-09-13 16:11 | Outpatient (BNVA) | payer OTHER, SELFPAY | PROVIDERS: PCP Family Medicine; Visit Provider Registered Nurse Neonatal Intensive Care | DX: M79.642 Pain in left hand (principal) | CPT/HCPCS: 73130 ==

== ENCOUNTER 2024-12-02 05:39 | Outpatient (CLI) | payer SELFPAY ==
[2024-12-02 07:17] LABS: HF Add Manual Diff No
[2024-12-02 07:35] LABS: Hematocrit 44.1 % (36-47); Hemoglobin 14.70 g/dL (11.27-16.99); Mean Corpuscular HGB Conc 33.3 g/dL (30-55); Mean Corpuscular Hemoglobin 31.5 pg (27-33); Mean Corpuscular Volume 94.4 fl (85-98); Nucleated Red Blood Cells % 0 %; Platelet Count 324 10^3/cmm (157-399); Red Blood Count 4.67 10^6/uL (3.85-5.65); White Blood Count 6.30 10^3/uL (3.29-11.43)
[2024-12-02 08:03] LABS: Estmated Average Glucose 120; Hemoglobin A1C 5.8 % (4.0-6.0)
[2024-12-02 08:06] LABS: Alanine Aminotransferase 48 U/L (0-33); Albumin Level 4.6 g/dL (3.5-5.2); Alkaline Phosphatase 82 U/L (35-105); Anion Gap 15.6 (5-19); Aspartate Amino Transferase 34 U/L (0-32); Blood Urea Nitrogen 14 mg/dL (6-20); Calcium 9.9 mg/dL (8.5-10.5); Carbon Dioxide 26 mmol/L (22-29); Chloride 103 mmol/L (98-107); Cholesterol 426 mg/dL (0-200); Globulin 2.8 g/dL (1.3-4.6); Glucose 85 mg/dL (65-115); HDL Cholesterol 55 mg/dL (60-100); Osmolality Calculated 292 mOsm/kg (285-295); Potassium 3.6 mmol/L (3.5-5.1); Sodium 141 mmol/L (136-145); Thyroid Stimulating Hormone 2.08 uIU/mL (0.27-4.20); Total Protein 7.4 g/dL (6.6-8.7); Triglycerides 226 mg/dL (0-150)
== END 2024-12-02 05:40 | disposition home or self-care (01) ==
LOC: LAB 05:44
PROVIDERS: PCP Family Medicine; Visit Provider Dermatology
DX: Z01.89 Encounter for other specified special examinations (principal)

== ENCOUNTER 2025-02-11 09:12 | Outpatient (CLI) | payer OTHER, SELFPAY ==
--- NOTE | 2025-02-11 09:30 | MR_ITS ---
WS: [email or web address] MRI LEFT WRIST WITHOUT CONTRAST. COMPARISON: LEFT hand radiographs 09/13/2024. Multiplanar, multisequence imaging is performed without contrast. Marked widening of the distal radial ulnar joint with a small amount of fluid. There is ulnocarpal impaction against the triquetrum. Marrow and subchondral cystic changes within the triquetrum. There is abnormal signal throughout the TFCC consistent with a tear. There is additional radial impaction upon the lunate with subchondral cystic changes at the impaction site. The lunotriquetral ligament as visualized is probably intact. There is a small amount of fluid present but no fluid extending through the region of the ligament. Scapholunate ligament with very slight increased signal but no full-thickness tear. No increased signal within the tendons. There is a small amount of increased fluid surrounding the extensor digitorum and indices tendon sheaths. MR/MR wrist LT wo con* [id number] IMPRESSION: 1. Marked widening of the distal radial ulnar joint with distal radial ulnar j oint effusion. Widening is probably from a prior injury. 2. Ulnocarpal impaction against the triquetrum. Subchondral cyst within the tr iquetrum at the impaction site. 3. High-grade tear TFCC. 4. Mild radial impaction against the lunate with subchondral cystic changes at the impaction site. 5. Small amount of increased fluid within the extensor digitorum and indices t endon sheaths.
== END 2025-02-11 09:13 | disposition home or self-care (01) ==
LOC: RAD 09:12
PROVIDERS: PCP Family Medicine; Visit Provider Student in an Organized Health Care Education/Training Program
DX: S69.82XA Other specified injuries of left wrist, hand and finger(s), initial encounter (principal); X58.XXXA Exposure to other specified factors, initial encounter; M65.842 Other synovitis and tenosynovitis, left hand; M24.232 Disorder of ligament, left wrist; M25.432 Effusion, left wrist; M24.832 Other specific joint derangements of left wrist, not elsewhere classified; M85.642 Other cyst of bone, left hand
CPT/HCPCS: 73221

== ENCOUNTER 2025-02-25 09:44 | Outpatient (CLI) | payer OTHER, SELFPAY ==
--- NOTE | 2025-02-25 10:32 | MM_ITS ---
WS: [email or web address] BILATERAL SCREENING DIGITAL BREAST MAMMOGRAPHY WITH DONIS DISPLACEMENT VIEWS. CAD PERFORMED. HISTORY: ANNUAL MAMM COMPARISON: 07/05/2024, 12/06/2021 Bilateral craniocaudal and mediolateral oblique views are performed with tomosynthesis and SM. Donis displacement views in CC and MLO projection also performed. Breasts composition: There are scattered areas of fibroglandular density. Prepectoral implants are intact. Partial encapsulation of the implants by calcifications. No suspicious mass or nodules are identified. MM/MM scr tomosynthesis [id number] IMPRESSION: BI-RADS: 2 - Benign. FOLLOW-UP: 1 Year Follow-up
== END 2025-02-25 09:45 | disposition home or self-care (01) ==
LOC: RAD 09:45
PROVIDERS: PCP Family Medicine; Visit Provider Family Medicine
DX: Z12.31 Encounter for screening mammogram for malignant neoplasm of breast (principal); R92.323 Mammographic fibroglandular density, bilateral breasts; T85.44XA Capsular contracture of breast implant, initial encounter; X58.XXXA Exposure to other specified factors, initial encounter
CPT/HCPCS: 77063; 77067

== ENCOUNTER 2025-03-03 05:47 | Outpatient (CLI) | payer SELFPAY ==
[2025-03-03 08:04] LABS: HF Add Manual Diff No
[2025-03-03 08:15] LABS: Hematocrit 41.7 % (36-47); Hemoglobin 13.80 g/dL (11.27-16.99); Mean Corpuscular HGB Conc 33.1 g/dL (30-55); Mean Corpuscular Hemoglobin 31.2 pg (27-33); Mean Corpuscular Volume 94.3 fl (85-98); Nucleated Red Blood Cells % 0 %; Platelet Count 331 10^3/cmm (157-399); Red Blood Count 4.42 10^6/uL (3.85-5.65); White Blood Count 5.26 10^3/uL (3.29-11.43)
[2025-03-03 08:44] LABS: Estmated Average Glucose 103; Hemoglobin A1C 5.2 % (4.0-6.0)
[2025-03-03 09:46] LABS: Alanine Aminotransferase 34 U/L (0-33); Albumin Level 4.7 g/dL (3.5-5.2); Alkaline Phosphatase 78 U/L (35-105); Anion Gap 16.9 (5-19); Aspartate Amino Transferase 25 U/L (0-32); Blood Urea Nitrogen 17 mg/dL (6-20); Calcium 9.7 mg/dL (8.5-10.5); Carbon Dioxide 26 mmol/L (22-29); Chloride 104 mmol/L (98-107); Cholesterol 344 mg/dL (0-200); Globulin 2.7 g/dL (1.3-4.6); Glucose 76 mg/dL (65-115); HDL Cholesterol 64 mg/dL (60-100); Osmolality Calculated 296 mOsm/kg (285-295); Potassium 3.9 mmol/L (3.5-5.1); Sodium 143 mmol/L (136-145); Total Protein 7.4 g/dL (6.6-8.7); Triglycerides 209 mg/dL (0-150)
== END 2025-03-03 05:48 | disposition home or self-care (01) ==
LOC: LAB 05:48
PROVIDERS: PCP Family Medicine; Visit Provider Dermatology
DX: Z01.89 Encounter for other specified special examinations (principal)